=== PATIENT | female | born 1990 ===

== ENCOUNTER 2021-12-28 09:12 | Outpatient (CLI) | payer OTHER | END 2021-12-28 10:25 | disposition home or self-care (01) | LOC: PRENATAL 09:12 | PROVIDERS: ATTEND Obstetrics & Gynecology Maternal & Fetal Medicine | DX: O35.0XX0 Maternal care for (suspected) central nervous system malformation in fetus, not applicable or unspecified (principal); O35.3XX0 Maternal care for (suspected) damage to fetus from viral disease in mother, not applicable or unspecified; O34.219 Maternal care for unspecified type scar from previous cesarean delivery ==

== ENCOUNTER 2024-05-30 10:15 | Inpatient (IN) | payer OTHER ==
[~2024-05-30] VITALS: Ht 157.5 cm; Wt 3.2 kg
[2024-05-30 11:27] LABS: HEMATOCRIT 36.3 % (36.0-45.00); HEMOGLOBIN 12.3 g/dL (12.0-15.00); MEAN CELL VOLUME 88.5 fL (80.00-100.00); PLATELET COUNT 187 K/uL (150-450); RED CELL DISTRIBUTION WIDTH 12.7 % (11.5-14.5)
[2024-05-30 12:03] LABS: PARTIAL THROMBOPLASTIN TIME 28.7 SECONDS (22.0-34.0); PROTHROMBIN TIME 10.5 SECONDS (9.0-11.5)
[2024-05-30 12:29] LABS: ALBUMIN 2.9 gm/dL (3.4-5.0); BILIRUBIN TOTAL 0.7 mg/dL (0.3-1.2); CALCIUM 8.8 mg/dL (8.5-10.1); CREATININE SERUM 0.5 mg/dL (0.55-1.02); GFR 142.98; GLOBULINA 3.4 G/DL (2.4-3.5); POTASSIUM 4.34 mEq/L (3.5-5.1); TOTAL PROTEIN 6.3 gm/dL (6.4-8.2)
[2024-06-04] MEDS ORDERED: PRENATA CHEWAB1 EACH PO (10:21)
[2024-06-04] MEDS ORDERED: OXYTOCIN 10 UNITS/ML VIAL ONE ×2 (12:21→17:16)
[2024-06-04] MEDS ORDERED: ERYTHROMYCIN BASE 1 GM TUBE OP ONE ×2 (12:21→12:30)
[2024-06-04] MEDS ORDERED: OXYTOCIN 10 UNITS/ML VIAL IV ONE (12:30)
[2024-06-04] MEDS ORDERED: CITRIC ACID/SODIUM CITRATE 30 ML BLIST.PACK PO ONE (12:30)
[2024-06-04] MEDS ORDERED: CEFAZOLIN SODIUM 1,000 MG VIAL IV ONE (12:30)
[2024-06-04] MEDS ORDERED: MEPERIDINE HCL/PF 50 MG/ML VIAL IM PRN (15:30)
[2024-06-04] MEDS ORDERED: OXYTOCIN 1,000 ML IV SCH (15:45)
[2024-06-05 11:50] LABS: HEMATOCRIT 34.3 % (36.0-45.00); MEAN CELL VOLUME 88.3 fL (80.00-100.00); MEAN CORPUSCULAR HEMOGLOBIN 30.9 pg (27.00-32.0); PLATELET COUNT 223 K/uL (150-450); RED BLOOD COUNT 3.89 M/uL (4.00-6.00); RED CELL DISTRIBUTION WIDTH 12.6 % (11.5-14.5)
[2024-06-05] MEDS ORDERED: ACETAMINOPHEN 500 MG GEL..CAP PO SCH (13:03)
[2024-06-05] MEDS ORDERED: IBUprofen 600 MG TABLET PO SCH (13:04)
[2024-06-05] MEDS ORDERED: GABAPENTIN 600 MG TABLET PO SCH (17:00)
[2024-06-06] MEDS ORDERED: GABAPENTIN 300 MG CAPSULE PO SCH (01:00)
[2024-06-06] MEDS ORDERED: OXYTOCIN 10 UNITS/ML VIAL IV ONE (14:45)
[2024-06-06] MEDS ORDERED: CEFAZOLIN SODIUM 1,000 MG VIAL IV ONE (14:45)
[2024-06-06] MEDS ORDERED: ERYTHROMYCIN BASE 1 GM TUBE OP ONE (14:45)
== END 2024-06-06 17:04 | disposition home or self-care (01) | DRG 788 ==
LOC: OB/GYN 06-04 09:07 → O/R 06-04 09:07 → OB/GYN 06-04 13:59
PROVIDERS: Obstetrics & Gynecology Gynecology; ADMIT Obstetrics & Gynecology; ATTEND Obstetrics & Gynecology
PROC: 4A1HXCZ Monitoring of Products of Conception, Cardiac Rate, External Approach (ICD-10-PCS; 2024-06-04)
PROC: 10D00Z1 Extraction of Products of Conception, Low, Open Approach (ICD-10-PCS; principal; 2024-06-04 14:30)
DX: O34.211 Maternal care for low transverse scar from previous cesarean delivery (principal); Z3A.38 38 weeks gestation of pregnancy; Z37.0 Single live birth; Z20.822 Contact with and (suspected) exposure to COVID-19